=== PATIENT | male | born 2000 | race Two or more races ===

== ENCOUNTER 2018-09-22 14:56 | Emergency (ER) | payer SELFPAY ==
[~2018-09-22] VITALS: Ht 170.2 cm; Wt 64.0 kg
[2018-09-22 15:15] VITALS: BP 114/72
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
[2018-09-22] MEDS ORDERED: Acetaminophen 500mg (ES) tab ORAL ONE (15:30)
[2018-09-22] MEDS ORDERED: Bacitracin Oint UD TOPIC ONE (15:30)
[2018-09-22] MEDS ORDERED: Tetanus/Diptheria/Pertussis IM ONE (15:30)
--- NOTE | 2018-09-22 15:40 | NUR ---
ED Nurse Note: pt medicated adn tolerated well as per ermd order.
[2018-09-22] MEDS ORDERED: NAPROXEN250 MG ORAL (15:43)
[2018-09-22 15:45] VITALS: BP 114/72
--- NOTE | 2018-09-22 15:45 | NUR ---
ER DISCHARGE NOTE: Patient is cleared to be discharged per ERMD, pt is aox4, on room air, with stable vital signs. pt was given dc and prescription instructions, pt was able to verbalize understanding, pt id band removed without complications. pt is able to ambulate with steady gait. pt took all belongings.
== END 2018-09-22 15:45 | disposition home or self-care (01) ==
LOC: EDBD 14:56 → EMR 15:35
DX: S60.512A Abrasion of left hand, initial encounter (principal); S70.311A Abrasion, right thigh, initial encounter; S40.212A Abrasion of left shoulder, initial encounter; V43.52XA Car driver injured in collision with other type car in traffic accident, initial encounter; Y92.410 Unspecified street and highway as the place of occurrence of the external cause; Z23 Encounter for immunization
CPT/HCPCS: 90471; 90715; 99283